=== PATIENT | male | born 1990 | race Hispanic/Latino ===

== ENCOUNTER 2018-09-21 18:34 | Emergency (ER) | payer SELFPAY ==
--- NOTE | 2018-09-21 19:40 | RAD ---
3 views left ankle. History: Fall downstairs with left ankle pain. AP, lateral and oblique views left ankle obtained. Soft tissue swelling seen lateral to the left ankle. Denisse no evidence of acute fractures or bony lesi on seen. IMPRESSION: Lateral left ankle soft tissue swelling.
--- NOTE | 2018-09-21 19:42 | RAD ---
3 views right ankle. History: Right ankle pain after falling downstairs. AP, lateral and oblique views right ankle obtained. There is an old avulsion fracture which is well corticated inferior to the right distal fibula. This is not an acute lesion. No other right ankle abnormalities or lesions seen. IMPRESSION: No evidence of acute right ankle fractures.
== END 2018-09-21 20:08 | disposition home or self-care (01) ==
LOC: ERS 18:34
DX: S93.402A Sprain of unspecified ligament of left ankle, initial encounter (principal); J45.909 Unspecified asthma, uncomplicated; W10.9XXA Fall (on) (from) unspecified stairs and steps, initial encounter; Y99.8 Other external cause status

== ENCOUNTER 2019-02-18 07:43 | Emergency (ER) | payer SELFPAY ==
[2019-02-18] MEDS ORDERED: Ketorolac Tromethamine 60 MG/2 ML VIAL ONE (08:03)
--- NOTE | 2019-02-18 08:14 | RAD ---
Left wrist 3 views: 02/18/2019 COMPARISON: None HISTORY: Fall, trauma, pain FINDINGS: Mildly displaced fracture at the base of the ulnar styloid noted. There is a comminuted fra cture of the distal left radius with a transverse and oblique component. The fracture involves the distal radioulnar joint and probably the radiocarpal joint. There is mild impaction. There is mild do rsal displacement on the lateral view. IMPRESSION: Distal left radial fracture with associated ulnar styloid fracture as described above.
--- NOTE | 2019-02-18 08:15 | RAD ---
2 views left forearm: 02/18/2019 COMPARISON: None HISTORY: Fall, trauma, pain FINDINGS: Comminuted impacted intra-articular fracture of the distal left radius noted with an associ ated fracture at the base of the ulnar styloid. There is dorsal angulation and dorsal displacement of the distal radial fracture. IMPRESSION: Fracture deformities of the distal left radius and ulna as detailed above.
== END 2019-02-18 09:13 | disposition home or self-care (01) ==
LOC: ERS 07:43
DX: S52.572A Other intraarticular fracture of lower end of left radius, initial encounter for closed fracture (principal); S52.612A Displaced fracture of left ulna styloid process, initial encounter for closed fracture; J45.909 Unspecified asthma, uncomplicated; W18.30XA Fall on same level, unspecified, initial encounter
CPT/HCPCS: 25605; J1885

== ENCOUNTER 2019-10-29 11:32 | Emergency (ER) | payer OTHER, SELFPAY | END 2019-10-29 12:30 | disposition home or self-care (01) | LOC: ERS 11:32 | DX: Z20.828 Contact with and (suspected) exposure to other viral communicable diseases (principal) | CPT/HCPCS: 87635; 99283; U0003 ==